=== PATIENT | male | born 1955 | race Caucasian/White ===

== ENCOUNTER 2025-06-05 14:06 | Emergency (ER) | payer MEDICARE, SELFPAY ==
[2025-06-05] VITALS (22 sets, daily range): BP systolic 117–170; BP diastolic 58–88; PULSE 73–87; RESP 13–22; TEMP 36.6; O2SAT 93–100; BMI 37.7
--- NOTE | 2025-06-05 14:39 | CT_ITS ---
PROCEDURE: CT BRAIN/HEAD WITHOUT CONTRAST 06/05/2025 REASON FOR EXAM: INJURY TECHNIQUE: Procedure Code: CTBR Modality: CT Procedure: BRAIN/HEAD WITHOUT CONTRAST Coronal and Sagittal reconstruction series were provided. One or more dose reduction techniques were used (e.g., Automated exposure control, adjustment of the mA and/or kV according to patient size, use of iterative reconstruction technique. RADIATION DOSE SUMMARY: CTDlvol: 44.99 mGy DLP: 897.35 mGycm COMPARISON: None. FINDINGS: No acute intracranial hemorrhage, extra-axial collection, mass effect or evidence of acute infarct. Ventricles and subarachnoid spaces are normal in size. Atherosclerotic vascular calcifications. Absent grand traverse ocular lenses. Intact skull base and calvarium. Well-aerated paranasal sinuses and mastoid air cells. Mucosal polyp/retention cyst in the floor of left maxillary sinus. CT/Brain/Head without Contrast IMPRESSION: No acute intracranial abnormality. Reading Location: [id number]
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
[2025-06-05 15:01] LABS: Hematocrit 35.0 % (40-54); Hemoglobin 11.7 g/dL (13.0-16.5); Immature Granulocytes Count 0.020 X10^3/uL (0.0-0.0); Mean Corp Hgb Conc 33.4 g/dL (32-36); Mean Corpuscular Volume 83.5 fL (80-94); Mean Platelet Vol. 10.9 fl (6.2-12.0); NRBC Flagged by Analyzer 0 % (0-5); POSITIVE COUNT YES; Platelet Count 88 K/mm3 (150-450); RBC Distribution Width CV 14.4 % (11.6-14.6); RBC Distribution Width SD 43.3 fl (35.1-43.9); Red Blood Count 4.19 M/mm3 (4.6-6.2); White Blood Count 5.5 K/mm3 (4.4-11.0)
[2025-06-05 15:08] LABS: Differential Indicated SCAN CRITERIA MET
--- NOTE | 2025-06-05 15:25 | RAD_ITS ---
PROCEDURE: TIBIA FIBULA 2 VIEWS 06/05/2025 REASON FOR EXAM: INJURY TECHNIQUE: Procedure Code: RADTF Modality: DX Procedure: Four view left tibia and fibula Laterality: Left COMPARISON: None. RAD/Tibia & Fibula 2 Views IMPRESSION: Prominent arterial calcification is seen. [id number] left knee degenerative changes most apparent in the lateral an d patellofemoral compartments. No left knee joint effusion is seen. No radiopaque foreign body is seen. No acute fracture or dislocation is noted. If clinical concern persists, short-term follow-up imaging may be obtained to r ule out a currently occult fracture. Reading Location: [id number]
[2025-06-05 15:55] LABS: Anion Gap 11 (5-15); BUN 21 mg/dL (4-19); BUN/Creat Ratio 14.9 RATIO (10-20); Calcium,Total 9.3 mg/dL (7.6-11.0); Carbon Dioxide 22.0 mmol/L (21.0-32.0); Chloride 105 mmol/L (98-108); Estimated Creatinine Clearance 80.67 ml/min (50-250); Glucose 175 mg/dL (70-99); Potassium 4.5 mmol/L (3.3-5.1); Troponin T High Sensitivity 29 ng/L (<=22)
[2025-06-05 17:20] LABS: Troponin T High Sens 2 HR 28 ng/L (<=22)
[2025-06-05 17:32] LABS: Differential Comment SCANNED
--- NOTE | 2025-06-05 17:38 | ED.RN ---
CT CALLED FOR DELAY IN READ TIME. RESPONSE, IT IS BEING READ NOW.
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
--- NOTE | 2025-06-05 20:57 | ED.RN ---
report provided to physicians transport at this time
--- NOTE | 2025-06-05 21:04 | ED.RN ---
REPORT CALLED TO [facility] ED NURSE YARELIS AT THIS TIME.
== END 2025-06-05 21:18 | disposition short-term general hospital (02) ==
PROVIDERS: Emergency Provider Emergency Medicine; PCP Internal Medicine; Visit Provider Emergency Medicine
DX: S36.113A Laceration of liver, unspecified degree, initial encounter (principal); E10.9 Type 1 diabetes mellitus without complications; Z79.4 Long term (current) use of insulin; S22.41XA Multiple fractures of ribs, right side, initial encounter for closed fracture; E78.5 Hyperlipidemia, unspecified; S30.11XA Contusion of abdominal wall, initial encounter; S22.20XA Unspecified fracture of sternum, initial encounter for closed fracture; V49.40XA Driver injured in collision with unspecified motor vehicles in traffic accident, initial encounter; W22.10XA Striking against or struck by unspecified automobile airbag, initial encounter; Y92.410 Unspecified street and highway as the place of occurrence of the external cause; Z79.899 Other long term (current) drug therapy
CPT/HCPCS: 70450; 71260; 72125; 73590; 74177; 80048; 84484; 85025; 93005; 96374; 96375; 96376; 99285; Q9967; A4216; J2405